=== PATIENT | female | born 1995 | race African-American/Black ===

== ENCOUNTER 2017-01-18 07:32 | Emergency (ER) | payer OTHER ==
[~2017-01-18] VITALS: Ht 149.9 cm; Wt 71.2 kg
[2017-01-18 08:25] LABS: INFLUENZA A NEG (NEG); INFLUENZA B NEG (NEG)
== END 2017-01-18 08:59 | disposition home or self-care (01) ==
LOC: CED 07:32 → CFTX 07:32 → CED 08:37 → CFTX 08:59
PROVIDERS: Nurse Practitioner
DX: J06.9 Acute upper respiratory infection, unspecified (principal); J45.909 Unspecified asthma, uncomplicated; F17.210 Nicotine dependence, cigarettes, uncomplicated
CPT/HCPCS: 84703; 87651; 87804; 99283